=== PATIENT | male | born 1980 | race Caucasian/White ===

== ENCOUNTER 2016-10-09 08:55 | Outpatient (CLI) | payer MEDICARE | END 2016-10-09 08:56 | disposition home or self-care (01) | DX: N50.9 Disorder of male genital organs, unspecified (principal) ==

== ENCOUNTER 2016-10-27 07:48 | Outpatient (CLI) | payer MEDICARE | END 2016-10-27 07:49 | disposition home or self-care (01) | DX: N48.89 Other specified disorders of penis (principal) ==